=== PATIENT | male | born 1975 | race Caucasian/White ===

== ENCOUNTER 2023-04-22 16:06 | Emergency (ER) | payer OTHER ==
[~2023-04-22] VITALS: Ht 180.3 cm; Wt 124.7 kg
[2023-04-22 16:59] LABS: BASO # 0.1 10*3/uL (0.0-0.1); BASO % 0.9 % (0.0-1.0); EOS # 0.2 10*3/uL (0.0-0.4); EOS % 2.8 % (1.0-4.0); HEMATOCRIT 34.8 % (42.0-52.0); LYMPH # 1.1 10*3/uL (1.3-4.4); LYMPH % 14.2 % (27.0-41.0); MEAN CELL VOLUME 72.7 fl (80.0-94.0); MEAN CORPUSCULAR HGB 22.1 pg (27.0-31.0); MEAN CORPUSCULAR HGB CONC 30.5 g/dl (33.0-37.0); MEAN PLATELET VOLUME 9.8 fl (9.6-12.3); MONO # 0.6 10*3/uL (0.1-1.0); MONO % 7.4 % (3.0-9.0); NEUT # 5.8 10*3/uL (2.3-7.9); NEUT % 74.4 % (47.0-73.0); PLATELET COUNT AUTOMATED 279 10*3/uL (130-400); RED BLOOD COUNT 4.79 10*6/uL (4.50-5.90); RED CELL DISTRI WIDTH 17.2 % (0-14.5); WHITE BLOOD COUNT 7.8 10*3/uL (4.8-10.8)
[2023-04-22 17:08] LABS: BILIRUBIN Negative (Negative); BLOOD Negative (Negative); CLARITY Clear (Clear); COLOR Dark Yellow (Yellow); GLUCOSE Negative (Negative); KETONE Trace (Negative); LEUKO ESTERASE Negative (Negative); NITRITE Negative (Negative); SPECIFIC GRAVITY >= 1.030 (1.001-1.030)
[2023-04-22 17:16] LABS: BACTERIA TRACE; CALCIUM OXALATE CRYSTALS Trace; RBC 0-2 rbc/hpf (0-2); URINE AMPHETAMINES Negative (1000ng/ml); URINE BARBITURATES Negative (200ng/ml); URINE BENZODIAZEPINES Negative (200ng/ml); URINE CANNABINOIDS (THC) Negative (50ng/ml); URINE COCAINE Negative (300ng/ml); URINE METHADONE Negative (300ng/ml); URINE OPIATES Negative (300ng/ml); URINE PHENCYCLIDINE Negative (25ng/ml); WBC 0-2 wbc/hpf (0-5)
[2023-04-22 17:19] LABS: BUN 9 mg/dl (9-23); CHLORIDE 107 mmol/L (98-107); POTASSIUM 3.8 mmol/L (3.4-5.1)
[2023-04-22 17:31] LABS: ETHYL ALCOHOL < 3.0 mg/dl (<3)
[2023-04-22] MEDS ORDERED: FEROSUL325 M1 PO (18:54)
[2023-04-22] MEDS ORDERED: VITAMIN C500 M4 PO (18:54)
[2023-04-22] MEDS ORDERED: ATARAX,VISTARIL50 MG PO (18:55)
[2023-04-22] MEDS ORDERED: PANTOPRAZOLE SO40 MG PO (18:55)
[2023-04-22] MEDS ORDERED: ARIPIPRAZOLE15 MG PO (18:55)
[2023-04-22] MEDS ORDERED: AVPAK LEVETIRA750 M1 PO (18:55)
[2023-04-22] MEDS ORDERED: NALTREXONE HCL50 MG PO (18:56)
[2023-04-22] MEDS ORDERED: MINIPRESS2 M1 PO (18:56)
[2023-04-22] MEDS ORDERED: BUSPAR15 MG PO (18:56)
[2023-04-22] MEDS ORDERED: GABAPENTIN100 M2 PO (18:56)
[2023-04-22] MEDS ORDERED: OXCARBAZEPINE600 MG PO (18:57)
[2023-04-22] MEDS ORDERED: GERI-KOT8.6 MG PO (18:57)
[2023-04-22] MEDS ORDERED: RISPERIDONE2 M2 PO (18:57)
[2023-04-22] MEDS ORDERED: NAPROXEN250 MG PO (18:58)
== END 2023-04-23 00:14 ==
LOC: ED 16:06
PROVIDERS: Physician Assistant Medical
DX: R45.851 Suicidal ideations (principal); F32.9 Major depressive disorder, single episode, unspecified; F41.9 Anxiety disorder, unspecified; I10 Essential (primary) hypertension; K21.9 Gastro-esophageal reflux disease without esophagitis